=== PATIENT | male | born 1955 | race Asian ===

== ENCOUNTER 2025-03-18 08:41 | Emergency (ER) | payer MEDICARE, MEDICAID, SELFPAY ==
[2025-03-18 08:41] VITALS: BMI 25.2
[2025-03-18 08:49] VITALS: BP 106/77; PULSE 99; RESP 16; TEMP 36.7; O2SAT 96
--- NOTE | 2025-03-18 08:52 | PD.EDWOUND ---
ED Wound/Laceration-RME/HPI General Chief Complaint: Wound Recheck / Suture Removal Stated Complaint: SUTURE REMOVAL RT HEEL Time Seen by Provider: 03/18/25 08:52 Arrival date/time: 03/18/25 08:41 69-year-old male presents to the emergency department today for suture removal patient had sutures placed on last visit Limitations: no limitations Related Data Previous Rx's ?Medication ?Instructions ?Recorded erythromycin 5 mg/gram (0.5 %) eye 0.5 inch ophthalmic (eye) BID 08/29/17 ointment corneal abrasion #3.5 grams acetaminophen 325 mg tablet (Mapap 650 mg (2 x 325 mg) PO Q6H PRN 02/22/20 (acetaminophen)) Fever >101.5 #20 tabs amlodipine 5 mg tablet 5 mg PO QDAY #30 tabs 02/22/20 aspirin 81 mg chewable tablet 81 mg PO DAILY #30 tabs 02/22/20 atorvastatin 10 mg tablet 40 mg (4 x 10 mg) PO HS #30 tabs 02/22/20 glipizide 10 mg tablet 10 mg PO QDAY #30 tabs 02/22/20 lisinopril 2.5 mg tablet 10 mg (4 x 2.5 mg) PO QDAY #120 02/22/20 tabs metformin 500 mg tablet 500 mg PO BID #60 tabs 02/22/20 pantoprazole 40 mg tablet,delayed 40 mg PO QDAY #10 tabs 02/22/20 release Allergies Allergy/AdvReac Type Severity Reaction Status Date / Time No Known Drug Allergies Allergy Verified 03/18/25 08:43 Review of Systems Review of Systems Systems Reviewed: All systems reviewed, normal except as documented Constitutional Constitutional: Reports system reviewed and no additional complaints, except as documented, Denies fever(s) and Denies headache(s) Eyes Eyes: Reports system reviewed and no additional complaints, except as documented and Denies blurry vision ENT Ears, Nose, Mouth, and Throat: Reports system reviewed and no additional complaints, except as documented, Denies headache(s), Denies nasal congestion and Denies nasal discharge Cardiovascular Cardiovascular: Reports system reviewed and no additional complaints, except as documented, Denies chest pain and Denies dyspnea Respiratory Respiratory: Reports system reviewed and no additional complaints, except as documented, Denies chest congestion, Denies cough and Denies dyspnea Gastrointestinal Gastrointestinal: Reports system reviewed and no additional complaints, except as documented and Denies abdominal pain Integumentary/Breasts Skin/Breast: Reports system reviewed and no additional complaints, except as documented, Denies rash and Reports wounds (Sutures in place right ankle) Neurologic Neurologic: Reports system reviewed and no additional complaints, except as documented, Reports as per HPI and Denies headache(s) Past Medical History Past Medical History NEUROLOGIC: Positive Neurological Disorders and Cerebrovascular Accident (November 2018, no residuals, symptoms but not longer than 2 hrs) CARDIAC: Positive Cardiac Disorders and Hypertension; Negative Congestive Heart Failure RESPIRATORY: Negative Chronic Obstructive Pulmonary Disease (COPD) or Asthma GASTROINTESTINAL: Negative Gastrointestinal Disorders or Hepatitis GENITOURINARY: Negative Genitourinary Disorders or Renal Disease MUSCULOSKELETAL: Negative Musculoskeletal Disorders ENDOCRINE: Negative Endocrine Disorders, Diabetes Mellitus Type 1 or Diabetes Mellitus Type 2 HEMATOLOGIC: Negative Blood Disorders or Sickle Cell Disease OTHER HISTORY: Negative Autoimmune Disease, Blood Transfusions, Blood Transfusion Reaction, Anesthesia Reactions, Organ Transplant, Chemotherapy, Radiation Therapy, Hyperbaric Therapy, MRSA, VRSA, Vancomycin-Resistant Enterococci, Human Immunodeficiency Virus (HIV), Chicken Pox, Measles, Mumps, Rubella (Kiswahili Measles), Pertussis, Clostridium Difficile or Cancer Surgical History SURGICAL: Negative Organ Transplant Social History SMOKING STATUS: Never smoker SECOND HAND EXPOSURE: No 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 ED Exam General Limitations: Present no limitations General appearance: Present alert and in no apparent distress Head Head exam: Present atraumatic, normocephalic and normal inspection Eye Eye exam: Present normal appearance, PERRL and EOMI; Absent conjunctival injection ENT ENT exam: Present normal exam, normal oropharynx and mucous membranes moist Neck Neck exam: Present normal inspection, full ROM and trachea midline Chest Chest inspection: Present normal inspection and symmetric chest wall rise Respiratory Respiratory exam: Present normal lung sounds bilaterally Cardiovascular Cardiovascular exam: Present regular rate, normal rhythm and normal heart sounds Abdominal Exam Abdominal exam: Present soft and normal bowel sounds Extremities Exam Extremities exam: Present normal inspection and full ROM Back Exam Back exam: Present normal inspection and full ROM Neurological Exam Neurological exam: Present alert, oriented X3 and CN II-XII intact Psychiatric Psychiatric exam: Present normal affect and normal mood Skin Skin exam: Present warm, dry and other (Sutures in place right ankle ) Course Quality Measures none Vital Signs Vital signs: Vital Signs Temperature 98.0 F 03/18/25 08:49 Pulse Rate 99 03/18/25 08:49 Respiratory Rate 16 03/18/25 08:49 Blood Pressure 106/77 03/18/25 08:49 Pulse Oximetry (%) 96 03/18/25 08:49 Oxygen Delivery Method Room Air 03/18/25 08:49 O2 saturation 96% on room air within normal limits Wound / Laceration MDM Narrative MDM Narrative:: 69-year-old male presents to the emergency department today for suture removal patient had sutures placed on last visit On exam patient well-appearing patient does not appear ill or toxic no acute distress Patient has sutures in place right ankle sutures removed in their entirety Patient discharged home in no distress to follow-up with primary care doctor in the next 24 to 48 hours and for any worsening symptoms to return to the ER immediately Patient data External records reviewed:: [facility] previous records Clinical information provided by:: patient Social determinants that could affect healthcare access:: none Patient has the following chronic illnesses:: none How is presenting disease/condition affected by chronic disease/condition?: no chronic disease Evaluation data The following diagnostics were reviewed and interpreted by me:: other (specify) (na ) Lab and/or radiology exams considered but not ordered:: Considered not ordered Interpretation Summary: N/A Medications / Prescriptions Medications or Prescriptions considered but not ordered:: No meds Medication administrations:: No meds Consultations Consultation(s) initiated? (list below): No Diagnosis Wound Differential Diagnosis: laceration, abrasion and avulsion of skin Most likely diagnosis given after review of the tests above:: Suture removal Admission Indicated Admission indicated?: not indicated Admission Request Was there a request for admission?: No Disposition Plan Disposition Plan: Discharge Discharge Attestation Discharge Attestation: The patient and all family members were given an opportunity to ask questions and understood the discharge instructions. Discharge instructions specifically effects, indications for sooner follow up or return to the emergency department, and the expected course of current diagnosis. Patient condition: Stable Discharge Plan Plan Patient Disposition: HOME (Self Care) Discharge Disposition comment: Stable Prescriptions/Referrals Prescriptions/Med Rec: No Action erythromycin 5 mg/gram (0.5 %) ointment 0.5 inch OPHTHALMIC BID Qty: 3.5 0RF acetaminophen [Mapap (acetaminophen)] 325 mg Tablet 650 mg PO Q6H PRN (Reason: Fever >101.5) Qty: 20 0RF atorvastatin 10 mg Tablet 40 mg PO HS Qty: 30 0RF amlodipine 5 mg Tablet 5 mg PO QDAY Qty: 30 0RF pantoprazole 40 mg Tablet,Delayed Release (Dr/Ec) 40 mg PO QDAY Qty: 10 0RF aspirin 81 mg Tablet,Chewable 81 mg PO DAILY Qty: 30 0RF lisinopril 2.5 mg Tablet 10 mg PO QDAY Qty: 120 0RF metformin 500 mg tablet 500 mg PO BID Qty: 60 0RF glipizide 10 mg tablet 10 mg PO QDAY Qty: 30 0RF Problem List Clinical Impression: Encounter for removal of sutures Patient/Caregiver Discharge Instructions Education Materials: Suture Care Additional Instructions: Please follow up with your primary care doctor in the next 24-48hrs for any worsening symptoms return here immediately Print Language: Malay Stand Alone Forms: Hortencia Award Info., Patient Portal Info Letter PA/PASTRY MIXER Supervising Physician PA/PASTRY MIXER Supervising Physician: Dr. kelsey
== END 2025-03-18 10:00 | disposition home or self-care (01) ==
LOC: SERX 09:10
PROVIDERS: Emergency Provider Emergency Medicine
DX: S91.311D Laceration without foreign body, right foot, subsequent encounter (principal); X58.XXXD Exposure to other specified factors, subsequent encounter
CPT/HCPCS: 99284